=== PATIENT | female | born 1980 | race Caucasian/White ===

== ENCOUNTER → 2017-06-09 | Outpatient (CLI) | payer SELFPAY ==
--- NOTE | 2017-06-09 16:48 | RAD ---
Examination: Chest x-ray. Clinical History: Screening for TB. Patient unable to have TB skin test due to reaction. Technique: A single portable AP view of the chest was obtained. Comparison: None available. Findings: The lungs are hypoventilated, precluding evaluation of the heart size. No pneumothorax or pleural effusion is noted. No pulmonary opacity is noted. Minor degenerative changes are noted in the spine. No acute osseous abnormality is noted. Impression: 1. Hypoventilated lungs. Reported By:
== END ==
LOC: RAD 14:37
PROVIDERS: ATTEND Physician Assistant
DX: Z13.83 Encounter for screening for respiratory disorder NEC (principal); R06.89 Other abnormalities of breathing
CPT/HCPCS: 71020